=== PATIENT | female | born 1975 | race African-American/Black ===

== ENCOUNTER 2018-03-02 19:47 | Emergency (ER) | payer OTHER ==
[~2018-03-02] VITALS: Ht 162.6 cm; Wt 89.1 kg
[2018-03-02 20:39] LABS: CHLORIDE 104 mEq/L (99-109); POTASSIUM 3.7 mEq/L (3.7-5.4); SODIUM 138 mEq/L (136-147)
[2018-03-02 20:40] LABS: GLUCOSE 87 mg/dL (70-99)
[2018-03-02 20:41] LABS: PTT 33.7 SEC (25-37)
[2018-03-02 20:44] LABS: GFR ESTIMATE (CALCULATED) > 59 mL/min/
[2018-03-02 20:45] LABS: UREA NITROGEN (BUN) 12 mg/dL (9-23)
[2018-03-02 20:46] LABS: HEMATOCRIT 33.1 % (36.0-46.0); HEMOGLOBIN 11.6 G/DL (11.9-15.5); MCH 23.9 PG (29.0-34.0); MCV 68.1 FL (83-99); PLATELET COUNT 290 K/uL (156-360); RBC DIS.WIDTH-CV 15.6 % (11.8-14.6); RBC DIS.WIDTH-SD 38.1 % (39-53); RED BLOOD COUNT 4.86 M/uL (3.80-5.20)
[2018-03-02 20:52] LABS: QUANTITATIVE HCG < 4.0 MIU/ML
[2018-03-02 21:40] LABS: THYROTROPIN (TSH) 1.5 MIU/L (0.4-5.5)
[2018-03-02 23:51] LABS: TROP-I INTERPRETATION NEGATIVE; TROPONIN-I < 0.01 ng/mL (0.0-0.30)
[2018-03-02 23:56] LABS: TROP-I INTERPRETATION NEGATIVE; TROPONIN-I < 0.01 ng/mL (0.0-0.30)
[2018-03-03 00:44] VITALS: BP 147/90
== END 2018-03-03 00:45 | disposition home or self-care (01) ==
LOC: EME 19:47
PROVIDERS: Physician Assistant
DX: R06.02 Shortness of breath (principal); E05.00 Thyrotoxicosis with diffuse goiter without thyrotoxic crisis or storm; Z92.3 Personal history of irradiation; Z86.718 Personal history of other venous thrombosis and embolism; Z79.01 Long term (current) use of anticoagulants; Z85.3 Personal history of malignant neoplasm of breast; E78.5 Hyperlipidemia, unspecified; I10 Essential (primary) hypertension; Z88.0 Allergy status to penicillin
CPT/HCPCS: 70491; 71275; 80048; 84443; 84484; 84702; 85027; 85610; 85730; 93005; 99281; 99284

== ENCOUNTER 2018-04-07 20:56 | Emergency (ER) | payer OTHER ==
[~2018-04-07] VITALS: Ht 165.1 cm; Wt 90.4 kg
[2018-04-07 22:19] LABS: INTER. NORMALIZED RATIO 2.9
[2018-04-07 22:48] LABS: HEMATOCRIT 33.8 % (36.0-46.0); HEMOGLOBIN 11.9 G/DL (11.9-15.5); MCH 23.6 PG (29.0-34.0); MCHC 35.2 G/DL (30.0-36.0); MCV 66.9 FL (83-99); PLATELET COUNT 288 K/uL (156-360); RBC DIS.WIDTH-CV 17.8 % (11.8-14.6); RBC DIS.WIDTH-SD 41.6 % (39-53); RED BLOOD COUNT 5.05 M/uL (3.80-5.20); WHITE BLOOD COUNT 6.9 K/uL (4.1-10.2)
[2018-04-07 23:10] VITALS: BP 122/84
== END 2018-04-07 23:11 | disposition home or self-care (01) ==
LOC: EME 20:56
DX: R04.0 Epistaxis (principal); Z79.01 Long term (current) use of anticoagulants; Z86.718 Personal history of other venous thrombosis and embolism; Z85.3 Personal history of malignant neoplasm of breast
CPT/HCPCS: 85027; 85610; 99281; 99283